=== PATIENT | male | born 1960 | race Caucasian/White ===

== ENCOUNTER 2022-02-25 07:10 | Day surgery (SDC) | payer BC ==
[~2022-02-25 07:10] MED LIST: Lactated Ringers 1,000 ML IV SCH
[2022-02-25] MEDS ORDERED: Lidocaine 2% 5 ML SDV ONE (07:20)
[2022-02-25] MEDS ORDERED: Propofol 200 MG/20 ML SDV ONE ×2 (07:20→09:27)
[2022-02-25] MEDS ORDERED: fentaNYL 100 MCG/2 ML SDV ONE (07:20)
[2022-02-25] MEDS ORDERED: Lactated Ringers 1,000 ML IV SCH (10:00)
[2022-02-25 10:19] VITALS: BP 118/73; PULSE 60
== END 2022-02-25 10:41 | disposition home or self-care (01) ==
LOC: MW.SDS 07:10
PROVIDERS: ATTEND Surgery
DX: Z12.11 Encounter for screening for malignant neoplasm of colon (principal); D12.0 Benign neoplasm of cecum; K57.30 Diverticulosis of large intestine without perforation or abscess without bleeding; K64.8 Other hemorrhoids; E11.9 Type 2 diabetes mellitus without complications; I10 Essential (primary) hypertension; Z98.890 Other specified postprocedural states; E66.9 Obesity, unspecified; Z79.899 Other long term (current) drug therapy; Z79.84 Long term (current) use of oral hypoglycemic drugs; Z80.0 Family history of malignant neoplasm of digestive organs; Z87.891 Personal history of nicotine dependence; Z79.82 Long term (current) use of aspirin
CPT/HCPCS: 45380; 82947; J2704; J3010; J7120; 00812